=== PATIENT | female | born 1935 | race Caucasian/White ===

== ENCOUNTER → 2017-03-14 | Outpatient (CLI) | payer OTHER | LOC: FIMAGING 14:15 | DX: Z12.31 Encounter for screening mammogram for malignant neoplasm of breast (principal) | CPT/HCPCS: G0202 ==

== ENCOUNTER 2018-11-06 13:15 | Inpatient (IN) | payer OTHER, MEDICARE ==
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
[2018-11-06] MEDS ORDERED: ONDANSETRON DISINTEGRATING 4 MG TAB PO PRN (15:01)
[2018-11-06] MEDS ORDERED: oxyCODONE IR 5 MG TAB PO PRN (15:01)
[2018-11-06] MEDS ORDERED: HYDROmorphONE/DILAUDID 1 MG/ML INJ IVP PRN ×2 (15:01→19:49)
[2018-11-06] MEDS ORDERED: ACETAMINOPHEN 325 MG TAB PO PRN (15:01)
[2018-11-06] MEDS ORDERED: ONDANSETRON 4 MG/2 ML VIAL IVP PRN (15:01)
[2018-11-06] MEDS ORDERED: NS 1,000 ML IV SCH (15:15)
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
--- NOTE | 2018-11-06 16:41 | HOSPPROG ---
Hospitalist Progress Note Assessment/Plan: 83 yo F w/hx of HTN, recent dx of shingles presenting s/p mechanical fall with pain on her buttocks/back and right hip found to have superior/inferior pubic rami fractures, sacral fracture and hematoma around symphysis pubi # superior/inferior pubic rami fracture: seen by ortho, appreciate their input, will need pain management, pt/ot. Weight bearing status to be determined by ortho. This is a non operative injury # sacral fracture: in setting of above, trauma surgery involved # pubic symphysis fluid collection: per radiology appears to be hematoma, discussed with surgery, also possibly urine extravasation. Surgery requesting arreola placement and will determine if surgical intervention required # acute hypoxic respiratory failure: in setting of significant pain and immobility and likely largely due to atelectasis/splinting, personally reviewed cxr notable for massive hiatal hernia and otherwise difficult to interpret, will monitor for now # hiatal hernia: noted on imaging, not c/o gerd or other gi sxs at this time # leukocytosis: presumably stress response but relatively high for that at 22k, will check UA, cxr without clear e/o pna but again limited study with massive hiatal hernia, will not start abx at this time but if fever occurs or other s/s of infection would have low threshold to initiate abx # hyperglycemia: also presume this is stress response, will get am glucose and if still elevated obtain a1c # IP status, will require > 48 hours stay for eval/mgmt of above Care plan reviewed with ortho/general surgery and [employer]PER[employer]OR Prince as above. Objective: Vital Signs Temp Pulse Resp BP Pulse Ox 36.5 C 11 L 16 168/110 H 90 L 11/06/18 13:22 11/06/18 16:04 11/06/18 16:04 11/06/18 16:04 11/06/18 16:04 ICD10 Worksheet Patient Problems: Problems Problem Status Onset Pelvic fracture Acute
[2018-11-06 17:33] LABS: PLATELET COUNT 257 10^3/uL (150-400)
[2018-11-06] MEDS ORDERED: IOPAMIDOL (ISOVUE-300) 100 ML BTL ONE (17:36)
[2018-11-06 17:48] LABS: INR 1.04 (0.83-1.16); PROTIME(PATIENT) 13.8 SEC (12.0-15.0)
[2018-11-06] MEDS: LOSARTAN POTASSIUM 50 MG TAB PO SCH (20:59)
[2018-11-06] MEDS: amLODIPine BESYLATE 5 MG TAB PO SCH (20:59)
[2018-11-06] MEDS: ASPIRIN EC 81 MG TAB PO SCH (20:59)
[2018-11-06] MEDS: ACETAMINOPHEN 500 MG TAB PO SCH (21:37)
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
[2018-11-07 05:00] LABS: PLATELET COUNT 189 10^3/uL (150-400)
[2018-11-07] MEDS: ACETAMINOPHEN 500 MG TAB PO SCH ×3 (05:46→21:58)
[2018-11-07] MEDS: LEVOTHYROXINE 50 MCG TAB PO SCH (05:46)
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
--- NOTE | 2018-11-07 07:32 | TRAUMAPNT ---
Trauma Tertiary Progress Note Assessment/Plan: 83 year old woman s/p fall No additional injuries noted on tertiary survey Appreciate hospitalists handling multiple co-morbidities hypertension inclusion body myositis hypothyroid Hyperparathyroid Injuries include comminuted fx right superior and inferior pubic ramus non displaced posterior right inferior pubic ramus fracture sacral fractures S1-3 Due to pain and hematoma, Dr. Beltrán recommended keeping the Zamora for at least 1 day Incidental finding larger retrocardiac diaphragmatic hernia Subjective: S: Pain controlled when lying still. Was able to get to bedside commode for BM yesterday - was painful Objective: Vital Signs Temp Pulse Resp BP Pulse Ox 36.4 C 76 16 146/76 H 94 11/07/18 04:59 11/07/18 04:59 11/07/18 04:59 11/07/18 04:59 11/07/18 04:59 Laboratory Results 11/07/18 04:44 11/07/18 04:44 11/06/18 11/07/18 11/08/18 05:59 05:59 05:59 Output Total 650 Balance -650 PT 13.8 SEC (12.0-15.0) 11/06/18 17:25 INR 1.04 (0.83-1.16) 11/06/18 17:25 Physical Exam - Physical Exam General Appearance: WD/WN, alert, no apparent distress EENT: PERRL/EOMI, normal ENT inspection, No scleral icterus (R), No scleral icterus (L), No hearing deficit Neck: non-tender, full range of motion Respiratory: chest non-tender, lungs clear Cardiac/Chest: regular rate, rhythm, No edema Abdomen: normal bowel sounds, non-tender, soft Pelvic Exam: other (Clear yellow urine in Zamora bag) Skin: normal color, warm/dry Extremities: other (normal range of motion RUE.)
[2018-11-07 07:40] LABS: PLATELET COUNT 183 10^3/uL (150-400)
[2018-11-07] MEDS: predniSONE 5 MG TAB PO SCH (08:00)
[2018-11-07] MEDS: PANTOPRAZOLE SODIUM 40 MG TAB PO SCH (08:00)
--- NOTE | 2018-11-07 08:35 | SOAPPROG ---
<Sloane De Jesus S - Last Filed: 11/07/18 08:29> SOAP Progress Note Assessment/Plan: Assessment: s/p right inferior pubic ramus fracture: overall patient doing well today. Pain well controlled. Plan: TDWB with use of assistive devices for safe ambulation. DVT prophylaxis: SCDs, CHEKO parry, IS. Chemoprophylaxis per hospitalists. Ok to D/C once cleared by CM, PT/OT, hospitalists. RTC 2 weeks for repeat x-rays or prn additional questions/concerns which may arise. Advised to watch for worsening pain, abnormal numbness/tingling, worsening change in ROM or strength, change in heat/color of extremity, cramping in calves or ankles and to seek immediate medical attention if seen. Contact our office, Dr. Joel, for follow-up appointment at [phone]. Patient seen/examined in conjunction with Dr. Joel. 11/07/18 08:49 Subjective: Alone in room. Able to respond appropriately to questions/commands. Pain well controlled : 1-2/10. Able to eat normally. Denies worsening pain, abnormal numbness/tingling, worsening change in ROM or strength, change in heat/color of extremity, cramping in calves or ankles, cough, congestion, chest pain, dyspnea. Objective: Vital Signs Temp Pulse Resp BP Pulse Ox 36.7 C 72 14 142/83 H 94 11/07/18 07:35 11/07/18 07:35 11/07/18 07:35 11/07/18 07:35 11/07/18 07:35 Laboratory Results 11/07/18 07:30 11/07/18 04:44 11/06/18 11/07/18 11/08/18 05:59 05:59 05:59 Output Total 650 Balance -650 PT 13.8 SEC (12.0-15.0) 11/06/18 17:25 INR 1.04 (0.83-1.16) 11/06/18 17:25 AO, NAD, non-labored breathing, no diaphoresis. Sitting up in bed. MS: Right hip with no erythema, edema, ecchymosis or calor. Skin intact. All compartments soft. AROM limited by pain to patient: 0-25 in flexion/extension before pain elicited to patient. Unable to test IR/ER at this time secondary to pain to patient. FROM distally with 5/5 strength distally. DNVI b/l with no focal deficits noted. Calves soft/supple and NTTP b/l with negative b/l Homans. Brisk cap refill b/l. SCDs present b/l, CHEKO hose not present on patient. Zamora in place. - Pending Discharge Pending Discharge Within 24 Hours: No ICD10 Worksheet Patient Problems: Problems Problem Status Onset Pelvic fracture Acute <Sylvain Joel R - Last Filed: 11/07/18 11:08> SOAP Progress Note Assessment/Plan: Assessment: Low energey R sided LC1 pelvic fractures including sup/inf pub rami and sacrum, closed and stable appearing. Plan: As above and per my consult note yesterday. F/u with me in clinic 1 week after d/c to re-evaluate with XRs. No smoking or NSAIDs. PO analgesics per primary team. 11/07/18 11:05 Objective: Vital Signs Temp Pulse Resp BP Pulse Ox 36.7 C 72 14 142/83 H 94 11/07/18 07:35 11/07/18 07:35 11/07/18 07:35 11/07/18 07:35 11/07/18 07:35 Laboratory Results 11/07/18 07:30 11/07/18 04:44 11/06/18 11/07/18 11/08/18 05:59 05:59 05:59 Output Total 650 Balance -650 PT 13.8 SEC (12.0-15.0) 11/06/18 17:25 INR 1.04 (0.83-1.16) 11/06/18 17:25
[2018-11-07] MEDS: oxyCODONE IR 5 MG TAB PO PRN (09:55)
--- NOTE | 2018-11-07 10:51 | PDMN ---
Medical Necessity Medical necessity: Pt meets IP criteria as of 11/07/2018 per MD and [facility] -MD ( musculoskeletal disease); los > 2 mn for ongoing tx and management of superior/ inferior pubic rami fracture, sacral fracture, and pubic symphysis fluid collection s/p mechanical fall; requiring surgical consult, trauma consult, IV pain management for severe pain, and therapies. Comorbid advanced age and HTN.
--- NOTE | 2018-11-07 14:31 | ASMTCMCOM ---
CM Note CM Note Notes: Pt has R pelvis fx after a fall. Pt and husb reside at [facility]. PT rec SNF. Pt initially wanted [facility], did not know it was private pay so may change her mind. Pt and provided [facility] list, will review and let CM know choice tomorrow. CM to follow. D/c plan of care: SNF, which is TBD Date Signed: 11/07/2018 02:30 PM Electronically Signed By:ROSS Barnett
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
[2018-11-07] MEDS: LOSARTAN POTASSIUM 50 MG TAB PO SCH (18:17)
[2018-11-07] MEDS: CHOLECALCIFEROL VIT D3 2,000 UNITS TAB/CAP PO SCH (18:17)
[2018-11-07] MEDS: amLODIPine BESYLATE 5 MG TAB PO SCH (18:18)
[2018-11-07] MEDS: ASPIRIN EC 81 MG TAB PO SCH (18:19)
[2018-11-08] MEDS: ACETAMINOPHEN 500 MG TAB PO SCH ×3 (05:44→22:23)
[2018-11-08] MEDS: LEVOTHYROXINE 50 MCG TAB PO SCH (05:44)
--- NOTE | 2018-11-08 09:15 | TRAUMAPN ---
Trauma Progress Note Assessment/Plan: PAD#2 11/08/2018 Assessment: Pelvic fracture: Will DC arreola today to see if she can void. Has still to attempt TDWB Lungs: clear GI: eating, passed stool on , still passing flatus, + BS Plan: Work with mobilization today Subjective: No complaints Objective: Vital Signs Temp Pulse Resp BP Pulse Ox 36.8 C 71 18 120/62 90 L 11/08/18 08:00 11/08/18 08:00 11/08/18 08:00 11/08/18 08:00 11/08/18 08:00 Laboratory Results 11/07/18 07:30 11/07/18 04:44 11/07/18 11/08/18 11/09/18 05:59 05:59 05:59 Intake Total 1100 Output Total 650 1150 Balance -650 -50 PT 13.8 SEC (12.0-15.0) 11/06/18 17:25 INR 1.04 (0.83-1.16) 11/06/18 17:25 - C-Spine Clearance Cervical Spine Cleared: Yes Provider who Cleared Cervical Spine: ER Physical Exam - Physical Exam General Appearance: alert, no apparent distress EENT: PERRL/EOMI, normal ENT inspection, pharynx normal, TMs normal Neck: non-tender, full range of motion, supple, normal inspection Respiratory: chest non-tender, lungs clear, normal breath sounds Cardiac/Chest: normal peripheral pulses, regular rate, rhythm Abdomen: normal bowel sounds, non-tender, soft Rectal: deferred Back: Normal inspection Skin: normal color, warm/dry Neuro/Psych: no motor/sensory deficits, alert, normal mood/affect, oriented x 3 Time Spent w/Patient (minutes): 15
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
[2018-11-08] MEDS: predniSONE 5 MG TAB PO SCH (10:07)
[2018-11-08] MEDS: PANTOPRAZOLE SODIUM 40 MG TAB PO SCH (10:07)
--- NOTE | 2018-11-08 10:32 | ASMTCMCOM ---
CM Note CM Note Notes: Pt and her have chosen [facility]. Referral sent. Date Signed: 11/08/2018 10:31 AM Electronically Signed By:Tina Lepe
[2018-11-08] MEDS: oxyCODONE IR 5 MG TAB PO PRN ×2 (10:46→15:30)
--- NOTE | 2018-11-08 11:32 | PDCONSULT ---
Generator Rebuilder Note: Assessment: s/p right inferior pubic ramus fracture: overall patient doing well today. Pain well controlled. Plan: ONCE PATIENT CAN AMBULATE TO DOOR/HALLWAY, WE WILL ORDER INLET/OUTLET PELVIC X-RAY TO ASSES FRACTURE. (PLEASE CALL ME ONCE SHE AMBULATES TO DOOR FOR 3 VIEW PELVIC X-RAY) TDWB with use of assistive devices for safe ambulation. DVT prophylaxis: SCDs, CHEKO parry, IS. Chemoprophylaxis per hospitalists. Ok to D/C once cleared by CM, PT/OT, hospitalists. Most Likely Saturday 11/10 to [facility] RTC/follow-up 2 weeks for repeat x-rays or prn additional questions/concerns which may arise. Advised to watch for worsening pain, abnormal numbness/tingling, worsening change in ROM or strength, change in heat/color of extremity, cramping in calves or ankles and to seek immediate medical attention if seen. Contact our office, Dr. Joel, for follow-up appointment at [phone]. Subjective: present in room. Able to respond appropriately to questions/commands. Pain well controlled : 1-2/. Able to eat normally. Denies worsening pain, abnormal numbness/tingling, worsening change in ROM or strength, change in heat/ color of extremity, cramping in calves or ankles, cough, congestion, chest pain , dyspnea. Objective: PE: RLE No open wounds, abnormal swelling. Full ROM of Ankle/Knee. Distal Neurovasculature intact Lalito Soto PAC (Rounding for Dr. Marycruz DECKER, Orthopedic Surgery)
[2018-11-08] MEDS: CHOLECALCIFEROL VIT D3 2,000 UNITS TAB/CAP PO SCH (18:04)
[2018-11-08] MEDS: amLODIPine BESYLATE 5 MG TAB PO SCH (18:05)
[2018-11-08] MEDS: ASPIRIN EC 81 MG TAB PO SCH (18:05)
[2018-11-08] MEDS: LOSARTAN POTASSIUM 50 MG TAB PO SCH (18:05)
[2018-11-09] MEDS: ACETAMINOPHEN 500 MG TAB PO SCH ×3 (05:48→16:05)
[2018-11-09] MEDS: PANTOPRAZOLE SODIUM 40 MG TAB PO SCH (05:48)
[2018-11-09] MEDS: LEVOTHYROXINE 50 MCG TAB PO SCH (05:48)
[2018-11-09] MEDS: predniSONE 5 MG TAB PO SCH (08:29)
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
[2018-11-09] MEDS ORDERED: MAGNESIUM HYDROXIDE 30 ML UDCUP PO PRN (09:19)
[2018-11-09] MEDS ORDERED: BISACODYL 10 MG SUPP PR PRN (09:19)
[2018-11-09] MEDS ORDERED: LACTULOSE 20 GM/30 ML UDCUP PO PRN (09:19)
[2018-11-09] MEDS: CALCIUM CARBONATE 500 MG TAB PO SCH ×2 (10:36→21:49)
[2018-11-09] MEDS: POLYETHYLENE GLYCOL 3350 17 GM PKT PO SCH (10:36)
--- NOTE | 2018-11-09 12:15 | PDCONSULT ---
Broom Handle Dipper Note: Broom Handle Dipper Note: Assessment: s/p right inferior pubic ramus fracture: overall patient doing well today. Pain well controlled. Plan: ONCE PATIENT CAN AMBULATE TO DOOR/HALLWAY, WE WILL ORDER INLET/OUTLET PELVIC X-RAY TO ASSES FRACTURE. (PLEASE CALL ME ONCE SHE AMBULATES TO DOOR FOR 3 VIEW PELVIC X-RAY) TDWB with use of assistive devices for safe ambulation. DVT prophylaxis: SCDs, CHEKO parry, IS. Chemoprophylaxis per hospitalists. Ok to D/C once cleared by CM, PT/OT, hospitalists. Most Likely Saturday 11/10 to [facility] RTC/follow-up 2 weeks for repeat x-rays or prn additional questions/concerns which may arise. Advised to watch for worsening pain, abnormal numbness/tingling, worsening change in ROM or strength, change in heat/color of extremity, cramping in calves or ankles and to seek immediate medical attention if seen. Contact our office, Dr. Joel, for follow-up appointment at [phone]. Subjective: present in room. Able to respond appropriately to questions/commands. Pain well controlled : 1-2. Able to eat normally. Denies worsening pain, abnormal numbness/tingling, worsening change in ROM or strength, change in heat/ color of extremity, cramping in calves or ankles, cough, congestion, chest pain , dyspnea. Objective: PE: RLE No open wounds, abnormal swelling. Full ROM of Ankle/Knee. Distal Neurovasculature intact Lalito Soto PAC (Rounding for Dr. Marycruz DECKER, Orthopedic Surgery)
[2018-11-09] MEDS: CHOLECALCIFEROL VIT D3 2,000 UNITS TAB/CAP PO SCH (18:00)
[2018-11-09] MEDS: ASPIRIN EC 81 MG TAB PO SCH (18:00)
[2018-11-09] MEDS: amLODIPine BESYLATE 5 MG TAB PO SCH (18:00)
[2018-11-09] MEDS: LOSARTAN POTASSIUM 50 MG TAB PO SCH (18:00)
[2018-11-09] MEDS ORDERED: traMADol 50 MG TAB PO PRN (20:49)
--- NOTE | 2018-11-09 21:05 | TRAUMAPNT ---
Trauma Tertiary Progress Note New Findings: No new findings Assessment/Plan: PAD#2 11/08/2018 Assessment: Pelvic fracture: Will DC arreola today to see if she can void. Has still to attempt TDWB Lungs: clear GI: eating, passed stool on , still passing flatus, + BS Plan: Work with mobilization today PAD#3 Assessment: Pelvic Fracture: Voiding, Still working on forward walking with walker and TDWB right leg Sat up in chair for and extended time today Pain control and issue. Nursing having problems with timing of q8h tylenol As constipation an issue have DC'd OxyContin and added ultram May try mag citrate in AM GI: eating, passing gas but not stool yet Plan: continue to work with mobilization Subjective: I feel better Objective: Vital Signs Temp Pulse Resp BP Pulse Ox 36.7 C 90 16 136/78 H 93 11/09/18 15:44 11/09/18 15:44 11/09/18 15:44 11/09/18 18:00 11/09/18 15:44 Laboratory Results 11/07/18 07:30 11/07/18 04:44 11/08/18 11/09/18 11/10/18 05:59 05:59 05:59 Intake Total 1100 900 940 Output Total 1150 1325 1300 Balance -50 -425 -360 PT 13.8 SEC (12.0-15.0) 11/06/18 17:25 INR 1.04 (0.83-1.16) 11/06/18 17:25 - C-Spine Clearance Cervical Spine Cleared: Yes Provider who Cleared Cervical Spine: ER Physical Exam - Physical Exam General Appearance: WD/WN, alert, mild distress Respiratory: lungs clear, normal breath sounds Cardiac/Chest: regular rate, rhythm Abdomen: normal bowel sounds, non-tender, soft Pelvic Exam: deferred Rectal: deferred Back: Normal inspection Skin: normal color, warm/dry Neuro/Psych: no motor/sensory deficits, alert Time Spent w/Patient (minutes): 15
[2018-11-09] MEDS: SENNOSIDES/DOCUSATE SODIUM TAB PO SCH (21:48)
[2018-11-10 04:50] LABS: PLATELET COUNT 226 10^3/uL (150-400)
[2018-11-10] MEDS: ACETAMINOPHEN 500 MG TAB PO SCH (06:19)
[2018-11-10] MEDS: LEVOTHYROXINE 50 MCG TAB PO SCH (06:20)
[2018-11-10] MEDS: PANTOPRAZOLE SODIUM 40 MG TAB PO SCH (06:33)
[2018-11-10] MEDS ORDERED: ALENDRONATE SODIUM 70 MG TAB PO SCH (07:00)
[2018-11-10 08:01] VITALS: BP 147/65
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
[2018-11-10] MEDS ORDERED: BISACODYL 10 MG SUPP PR ONE (09:15)
[2018-11-10] MEDS: SENNOSIDES/DOCUSATE SODIUM TAB PO SCH (09:22)
[2018-11-10] MEDS: CALCIUM CARBONATE 500 MG TAB PO SCH (09:22)
[2018-11-10] MEDS: predniSONE 5 MG TAB PO SCH (09:22)
[2018-11-10] MEDS: POLYETHYLENE GLYCOL 3350 17 GM PKT PO SCH (09:23)
--- NOTE | 2018-11-10 09:33 | PDIAF ---
- Diagnosis Diagnosis: pelvic fx, sacral fx Code Status: Full Code - Medication Management Discharge Medications: electronically signed and located in the Home Medication List. - Orders Services needed: Physical Therapy, Occupational Therapy Diet Recommendation: no restrictions on diet Diet Texture: Regular Texture Diet Additional Instructions: Orthopedic Instructions: Touch down weight bearing with use of assistive devices for safe ambulation. Please continue exercises shown by physical therapy. DVT prevention: Continue SCDs, CHEKO hose, breathing exercises. Return to Dr. Joel's office in one week for repeat x-rays or as needed with additional questions/concerns which may arise. Advised to watch for worsening pain, abnormal numbness/tingling, worsening change in ROM or strength, change in heat/color of extremity, cramping in calves or ankles and to seek immediate medical attention if seen. Contact our office, Dr. Joel, for follow-up appointment at [phone]. - Follow Up Care Current Providers and Referrals: Celestine Hernandez MD [Primary Care Provider] - As per Instructions Sylvain Joel MD [Medical Doctor] -
--- NOTE | 2018-11-10 09:52 | ASMTLACE ---
LACE Length of stay for Answers: 4-6 days current admission Acuity / Level of Answers: Yes Care: Did the patient have an inpatient admission? Comorbidities - select Answers: Other Notes: HTN; HLD all that apply # of Emergency department Answers: 1-2 visits in the last 6 months Score: 9 Date Signed: 11/10/2018 09:51 AM Electronically Signed By:ROSS Barnett
--- NOTE | 2018-11-10 10:56 | TRAUMAPN ---
Trauma Progress Note Assessment/Plan: PAD#2 11/08/2018 Assessment: Pelvic fracture: Will DC arreola today to see if she can void. Has still to attempt TDWB Lungs: clear GI: eating, passed stool on , still passing flatus, + BS Plan: Work with mobilization today PAD#3 Assessment: Pelvic Fracture: Voiding, Still working on forward walking with walker and TDWB right leg Sat up in chair for and extended time today Pain control and issue. Nursing having problems with timing of q8h tylenol As constipation an issue have DC'd OxyContin and added ultram May try mag citrate in AM GI: eating, passing gas but not stool yet Plan: continue to work with mobilization PAD#4 Assessment: Doing well set for transfer Subjective: I feel better. Pain is manageable Objective: Vital Signs Temp Pulse Resp BP Pulse Ox 36.6 C 81 12 147/65 H 96 11/10/18 08:00 11/10/18 08:00 11/10/18 08:00 11/10/18 08:00 11/10/18 08:00 Laboratory Results 11/10/18 04:26 11/07/18 04:44 11/09/18 11/10/18 11/11/18 05:59 05:59 05:59 Intake Total 900 1140 300 Output Total 1325 2350 Balance -425 -1210 300 PT 13.8 SEC (12.0-15.0) 11/06/18 17:25 INR 1.04 (0.83-1.16) 11/06/18 17:25 - C-Spine Clearance Cervical Spine Cleared: Yes Provider who Cleared Cervical Spine: ER
--- NOTE | 2018-11-10 11:41 | ASMTCMCOM ---
CM Note CM Note Notes: Pt medically stable for d/c to [facility]. Orders sent in [employer]. JADE Garza to call report. Michelle scheduled [facility] transport for 1330. Date Signed: 11/10/2018 11:41 AM Electronically Signed By:ROSS Barnett
--- NOTE | 2018-11-10 12:02 | SOAPPROG ---
SOAP Progress Note Assessment/Plan: Assessment: s/p right inferior pubic ramus fracture: overall patient doing well today. Pain well controlled. Likely to D/C this afternoon. Plan: TDWB with use of assistive devices for safe ambulation. DVT prophylaxis: Espinoza, CHEKO parry, IS. Chemoprophylaxis per hospitalists. Ok to D/C once cleared by CM, PT/OT, hospitalists. RTC 2 weeks for repeat x-rays or prn additional questions/concerns which may arise. Advised to watch for worsening pain, abnormal numbness/tingling, worsening change in ROM or strength, change in heat/color of extremity, cramping in calves or ankles and to seek immediate medical attention if seen. Contact our office, Dr. Joel, for follow-up appointment at [phone]. Patient seen/examined in conjunction with Dr. Joel. Subjective: Alone in room. Able to respond appropriately to questions/commands. Pain well controlled : 1-2/10. Able to eat normally and has had BM. Has been up with PT/ OT. Denies worsening pain, abnormal numbness/tingling, worsening change in ROM or strength, change in heat/color of extremity, cramping in calves or ankles, cough, congestion, chest pain, dyspnea. Objective: Vital Signs Temp Pulse Resp BP Pulse Ox 36.6 C 81 12 147/65 H 96 11/10/18 08:00 11/10/18 08:00 11/10/18 08:00 11/10/18 08:00 11/10/18 08:00 Laboratory Results 11/10/18 04:26 11/07/18 04:44 11/09/18 11/10/18 11/11/18 05:59 05:59 05:59 Intake Total 900 1140 300 Output Total 1325 2350 Balance -425 -1210 300 PT 13.8 SEC (12.0-15.0) 11/06/18 17:25 INR 1.04 (0.83-1.16) 11/06/18 17:25 AO, NAD, non-labored breathing, no diaphoresis. Sitting up in chair. MS: Right hip with no erythema, edema, ecchymosis or calor. Skin intact. All compartments soft. AROM limited by pain to patient: 0-25 in flexion/extension before pain elicited to patient. Unable to test IR/ER at this time secondary to pain to patient. FROM distally with 5/5 strength distally. DNVI b/l with no focal deficits noted. Calves soft/supple and NTTP b/l with negative b/l Homans. Brisk cap refill b/l. SCDs present b/l, CHEKO hose not present on patient. Zamora no longer in place. ICD10 Worksheet Patient Problems: Problems Problem Status Onset Pelvic fracture Acute
--- NOTE | 2018-11-10 14:24 | ASDISCHSUM ---
Discharge Information Plan Status:SNF Medically Cleared to Leave: Discharge Date:11/10/2018 01:54 PM CM D/C Disposition: ADT D/C Disposition:Halfway Facility Projected Discharge Date:11/10/2018 11:00 AM Transportation at D/C:Wheelchair Van Discharge Delay Reason: Follow-Up Date:11/10/2018 11:00 AM Discharge Slot: Final Diagnosis: Placement Information Referral Type:*Correction/SNF Referral ID:[id number] Provider Name:[facility] Address 1:[address] Address 2: City:[place] Selection Factors: State:[place] Patient Contact Information Contact Name:ALVERTO Relationship: Address:[address] Work Phone: [facility]:[place] Alternate Phone: State/Zip Code:[place] [address] Email: Financial Information Financial Class:Medicare Primary Plan Desc:MEDICARE INPATIENT Primary Plan Number:[id number] Secondary Plan Desc:[employer]/MDR SUPPLEMENT Secondary Plan Number:[id number] Assessment Information LACE LACE Length of stay for Answers: 4-6 days current admission Acuity / Level of Answers: Yes Care: Did the patient have an inpatient admission? Comorbidities - select Answers: Other Notes: HTN; HLD all that apply # of Emergency department Answers: 1-2 visits in the last 6 months Score: 9 Date Signed: 11/10/2018 09:51 AM Electronically Signed By:ROSS Barnett [facility] CM Progress Note CM Note CM Note Notes: Pt has R pelvis fx after a fall. Pt and husb reside at [place]. PT rec SNF. Pt initially wanted [facility], did not know it was private pay so may change her mind. Pt and provided [facility] list, will review and let CM know choice tomorrow. CM to follow. D/c plan of care: SNF, which is TBD Date Signed: 11/07/2018 02:30 PM Electronically Signed By:ROSS Barnett [facility] CM Progress Note CM Note CM Note Notes: Pt and her have chosen [facility]. Referral sent. Date Signed: 11/08/2018 10:31 AM Electronically Signed By:Tina Lepe [facility] CM Progress Note CM Note CM Note Notes: Pt medically stable for d/c to [facility]. [facility] JADE Garza to call report. Michelle scheduled transport for 1330. Date Signed: 11/10/2018 11:41 AM Electronically Signed By:ROSS Barnett Intervention Information Intervention Type:*LAURITA-Signed Date of Service:11/10/2018 10:34 AM Patient Type:Inpatient Staff Member:Yanelis Peterson Hours: Discipline: Severity: Comment:
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
== END 2018-11-10 13:54 | DRG 535 ==
LOC: F3N 20:17
PROVIDERS: ADMIT Internal Medicine; ATTEND Internal Medicine
DX: S32.511A Fracture of superior rim of right pubis, initial encounter for closed fracture (principal); S32.14XA Type 1 fracture of sacrum, initial encounter for closed fracture; S30.1XXA Contusion of abdominal wall, initial encounter; W03.XXXA Other fall on same level due to collision with another person, initial encounter; Y92.481 Parking lot as the place of occurrence of the external cause; J96.21 Acute and chronic respiratory failure with hypoxia; D72.829 Elevated white blood cell count, unspecified; K44.9 Diaphragmatic hernia without obstruction or gangrene; R73.9 Hyperglycemia, unspecified; E03.9 Hypothyroidism, unspecified; E78.5 Hyperlipidemia, unspecified; M81.0 Age-related osteoporosis without current pathological fracture; G72.41 Inclusion body myositis [IBM]; K21.9 Gastro-esophageal reflux disease without esophagitis; B02.9 Zoster without complications; E21.3 Hyperparathyroidism, unspecified; I10 Essential (primary) hypertension
CPT/HCPCS: 82435-PO; 82565-PO; 82947-PO; 84132-PO; 84295-PO; 84520-PO; 85014-PO; 97116-GP; 97161-GP; 97166-GO; 97530-GO; 97530-GP; 97535-GO; G0378; G8978-GP-CL; G8979-GP-CK; G8987-GO-CK; G8988-GO-CI; J1170; J7512; Q9967